=== PATIENT | female | born 1975 | race Caucasian/White ===

== ENCOUNTER → 2016-04-08 | Outpatient (CLI) | payer BC ==
[~2016-04-08] MED LIST: BCPILLS PO; IBUP-1459 PO; LEVO125T4 PO; NORE0.1T PO; VTMD PO
[2016-04-08 14:16] LABS: ALT/SGPT 17 U/L (12-78); AST/SGOT 12 U/L (15-37); BLOOD UREA NITROGEN 13 mg/dl (7-18); BUN/CREATININE RATIO 13.4 (10-20); CARBON DIOXIDE 26 mmol/L (21-32); CHLORIDE 106 mmol/L (98-107); CREATININE 0.98 mg/dl (0.60-1.20); GLUCOSE 72 mg/dl (70-99); POTASSIUM 4.5 mmol/L (3.5-5.1); SODIUM 140 mmol/L (136-145)
[2016-04-08 14:23] LABS: ALB/GLOB RATIO 1.1 (0.9-2); ALKALINE PHOSPHATASE 55 U/L (45-117); FERRITIN 8.7 ng/ml (8.0-388.0); THYROID STIMULATING HORMONE 0.498 uIu/ml (0.300-4.500)
[2016-04-13 11:34] LABS: MICROSOMAL AB 7 IU/ML (<9); T3 REVERSE **TC 90963 16 ng/dL (8-25); THYROGLOBULIN 6.3 NG/ML (2.8-40.9)
== END | disposition home or self-care (01) ==
LOC: C.LAB 13:26
PROVIDERS: ATTEND Chiropractor
DX: M79.1 Myalgia (principal)